=== PATIENT | female | born 1990 | race Caucasian/White ===

== ENCOUNTER 2021-01-16 09:18 | Day surgery (SDC) | payer SELFPAY ==
[2021-01-11 11:27] LABS: Hematocrit 41.7 % (37-47); Mean Corp Hgb Conc 33.6 g/dL (32-36); Mean Corpuscular Hgb 29.8 pg (27.0-32.0); Mean Corpuscular Volume 88.7 fL (81-99); Mean Platelet Vol. 9.2 fl (6.2-12.0); Platelet Count 258 K/mm3 (150-450); RBC Distribution Width CV 12.2 % (11.6-14.6); RBC Distribution Width SD 40.2 fl (35.1-43.9); White Blood Count 8.3 K/mm3 (4.4-11.0)
--- NOTE | 2021-01-14 12:35 | HP.PCM_ITS ---
History and Physical Date of Admission: 01/16/21 Surgical History and Physical Joanna Hayes, a 30 year old female 1 0 1 0 1, presents for Suction D and E on January 16, 2021 at 12:45. -- Inevitable Miscarriage -- Yolk sac was present but the gestational sac was too large for a viable . No heartbeat was seen. No vaginal bleeding. Ultrasound date of surgery confirmed no heart tones present. Patient is approximately 10 weeks gestation by dates. Patient and her are going to [place] late next week. Ultrasound today with the same result. MEDICATIONS HISTORY: Patient is also takin. No Meds ALLERGIES: No Known Drug Allergies Infections - chicken pox, pnuemonia as a child Illnesses - denies Accidents - None Hospitalizations - see surgery Review of Systems: GENERAL - Denies fever, or chills SKIN - Denies skin changes EYES - Denies visual changes EARS - Denies difficulty hearing NOSE - Denies nasal congestion or bleeding MOUTH - Denies sore throat or difficulty swallowing NECK - Denies pain or swelling RESPIRATORY - Denies shortness of breath or wheezing CARDIOVASCULAR - Denies palpitations or chest pain GASTROINTESTINAL - Denies nausea, vomiting, diarrhea, constipation GENITOURINARY - Denies dysuria, frequency of urination, incontinence of urine MUSCULOSKELETAL - Denies joint or muscle pain NEUROLOGICAL - Denies localized numbness or weakness PSYCHIATRIC - Denies depression or anxiety ENDOCRINE - Denies heat or cold intolerance, weight loss or gain HEMATO-IMMUNOLOGIC - Denies excesive bleeding with cuts SOCIAL HISTORY: Alcohol Use - denies drinking Smoking - denies smoking Diet - balanced Diet Lifestyle - Exercise - regular Seat Belt Use - always Employer - homemaker Illicit Drug Use - denies use of street drugs Sexual Activity - Residence - owns a home Spouse-Sig Other Name - Marvin Children Name(s) - Rohit (2) Control - None-attempting pregancy FAMILY HISTORY: MENSTRUAL HISTORY: LMP Known?- Definite, LMP - 10/29/20 PAST PREGNANCIES: Total Pregnancies - 3; Full Term Pregnancies - 1; Premature - 0; Abortions, Induced - 0; Abortions, Spontaneous - 1; Ectopics - 0; Multiple Births - 0; Living Children - 1 SURGICAL HISTORY: 1. 12/29/2019 suction D+C ; Dr. Stock- [facility] - PHYSICAL EXAM BP- 112/84 Sitting, Right arm, regular cuff Weight- 168.25965 lbs Height- 64.00 inch BMI:28.9 CONSTITUTIONAL - NAD, well nourished, and well developed SKIN - No rash, lesions, or ulcers HEENT - Normocephalic, PERRLA, EOMI NECK - No nodes, no nuchal rigidity and thyroid normal size and texture LYMPH NODES - Palpation of lymph nodes in neck and groins within normal limits LUNGS - CTA x2 without wheezes, crackles or rales CARDIAC - Regular rate and rhythm without rubs, murmurs, or gallops ABDOMEN - Without hepatosplenomegaly, distention, masses, rebound, or guarding; normal bowel sounds; no hernias EXTREMITIES - No edema or calf tenderness NEUROLOGICAL - Cranial nerves II-XII grossly intact PSYCHIATRIC - A and O to time, place, person, mood and affect ASSESSMENT/PLAN: 1. Spontaneous Abort [employer] Inevitable miscarriage at 10 weeks gestation. We will proceed with suction dilation and curettage. Discussed risks, benefits, and alternatives of this procedure and patient and her desire that we proceed.
--- NOTE | 2021-01-16 | POC_PTH ---
PATIENT: NEELAM BATEMAN [place] [facility] [place][id number] AGE/SX: 30/F ROOM: RE01/16/[address]: Dr. Tho Castillo MD : 1990 BED: DIS: 01/16/2021 SPEC #: [id number] RECD: 01/16/21 15:01 STATUS: JESSIE MAYO #: [id number] OLEKSANDR: 01/16/21 00:[address]: Tho Castillo DEPT: SURGICAL PATHOLOGY RECD BY: Jimi Tidwell ENTERED: 01/17/21 08:01 SP TYPE: PROD CONC OTHR DR: Dr. Tho Evans MD Tissues: Product of conception, NOS Procedures: Surgery Specimen Level IV HEADER OPERATION: Suction dilation and curettage PRE-OP DIAGNOSIS: Missed TISSUE SUBMITTED: Products of conception MICROSCOPIC DIAGNOSIS Products of conception: [place], gestational endometrium and immature chorionic villi (products of conception). SJ:igor 01/18/2021 MICROSCOPIC DESCRIPTION Slides are reviewed. GROSS DESCRIPTION Received in fixative is one container labeled with the patient's name and designated products of conception. The specimen consists of multiple irregular fragments of light to dark contreras soft tissue that in aggregate measure 6 x 5 x 0.8 cm. parts are not grossly recognized. Trencher Driver portions are submitted in one cassette. / AM:igor 01/17/21 TC:5 [facility]: [id number]
[2021-01-16 11:19] VITALS: BP 114/66; PULSE 54; RESP 16; TEMP 36.4; O2SAT 100; BMI 29.1
--- NOTE | 2021-01-16 11:35 | PCM.OPRPT ---
Report of Operation Date of Procedure: 01/16/21 Pre-Operative Diagnosis: Inevitable Miscarriage Post-Operative Diagnosis: Inevitable Miscarriage Surgery/Procedure Performed:: Suction Dilation and Curettage Description of Surgical Findings:: 10 cm endometrial cavity with products of conception present. Surgeon: Tho Castillo Type of Anesthesia: Local MAC Anesthesiologist: Roberto Glaser Specimen's removed: Products of conception Estimated Blood Loss (mL): Minimal Fluids Replaced: Crystalloid Description of Procedure: Surgeon: Tho Castillo MD, FACOG Indication: 30 year patient with incomplete AB at 10 weeks gestation with a 5-6 week IUP without FHTs. Pt has been counseled regarding the risks, benefits, and alternatives of this procedure and all questions were answered. Procedure: Patient was taken to the operating room where she was given IV sedation. The patient was prepped and draped in the usual sterile fashion. The anterior cervix was grasped with a tenaculum and cervix was dilated. An 8 mm suction curette was inserted into the cervix and all contents removed. Uterus was gently curetted and remaining tissue was removed by reinserting the suction curette. The patient tolerated the procedure well and was taken to the recovery room in satisfactory condition. Sponge, instruments and needle counts were all correct. There were no apparent complications of the surgery. Grafts/Implants Used: None Complications None Admit VTE Documentation VTE Present on Admission: Yes VTE Mechan Device Prophylaxis: SCD's
[2021-01-16] MEDS: Lactated Ringers 1,000 ML 100 ML IV (11:37)
--- NOTE | 2021-01-16 11:38 | PCM.DC ---
Discharge Instructions Diet Discharge Diet: No restrictions Activity Discharge Activity: Return to Normal Activity, May Shower and May Take a Tub Bath May resume sexual activity in: 1-2 weeks Additional Activity Instructions:: Use Ibuprophen 800 mg orally every 8 hours as needed for pain. Can also add Tylenol 1000 mg every 8 hours if needed for pain. Drink lots of water. Call if bleeding more than a pad per hour. No tampons for 1 week or until bleeding has stopped. Activity is encouraged but do not over do it !! Dressing / Incision Call your doctor if you observe: Fever of 101 or Higher, Inability to urinate and Inability to have a bowel movement Follow Up Care Please Follow Up With: Tho Castillo MD When: 2-4 weeks Test Results: Test results from this visit will be discussed in further detail at your follow-up appointment, if applicable. Discharge Plan Admission Primary Reason for Your Visit: Miscarriage Attending Provider: Tho Castillo Primary Care Provider: Tho Evans Discharge Orders/Prescriptions Prescriptions: No Action 1 mg Tablet 1 tab PO DAILY RF: 0 Referrals / Follow Up: Tho Eavns MD [Primary Care Provider] - Disposition Disposition (needs filled in before D/C Order can be placed): Home, Self Care
[2021-01-16] MEDS: Oxytocin 10 UNITS/ML Vial (12:08)
[2021-01-16 12:26] VITALS: BP 114/66; BP 98/55; PULSE 56; RESP 12; TEMP 36.3; O2SAT 97
[2021-01-16 12:31] VITALS: BP 114/66; BP 95/55; PULSE 54; RESP 12; O2SAT 98
[2021-01-16 12:40] VITALS: BP 114/66; BP 94/59; PULSE 54; RESP 12; O2SAT 100
[2021-01-16 12:41] VITALS: BP 114/66; BP 94/59; PULSE 61; RESP 12; O2SAT 100
[2021-01-16 13:44] VITALS: BP 114/66
== END 2021-01-16 13:44 | disposition home or self-care (01) ==
LOC: SDC 09:19 → AC 10:54
PROVIDERS: PCP Family Medicine; Referring Provider Obstetrics & Gynecology; Visit Provider Obstetrics & Gynecology
PROC: (CPT 59812; principal; 2021-01-16 11:10)
DX: O03.4 Incomplete spontaneous abortion without complication (principal); Z3A.10 10 weeks gestation of pregnancy
CPT/HCPCS: 59812; 36415; 85027; 86850; 86900; 86901; 88305; J7120; J2405